=== PATIENT | male | born 1945 | race Caucasian/White ===

== ENCOUNTER → 2018-08-26 | Day surgery (SDC) | payer MEDICARE ==
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
[2018-08-25 13:18] VITALS: BMI 31.1
[~2018-08-26] MED LIST: Acetaminophen/Codeine 30-300mg Tablet ONE; CEFAZOLIN 2 GM/50 ML BAG ONE; Dexamethasone 20 MG/5 ML VIAL ONE; Fentanyl 100 MCG/2 ML VIAL ONE; Glycopyrrolate 0.2 MG/ML 5 ML SYRINGE ONE; HYDROmorphone 2 MG/ML VIAL SLOW IVP PRN; Lidocaine 1% PF 5 ML VIAL ONE; Meperidine HCl/PF 25 MG/ML VIAL SLOW IVP PRN; Morphine Sulfate 2 MG/ML SYRINGE SLOW IVP PRN; Ondansetron HCl/PF 4 MG/2 ML Vial IVP PRN; Ondansetron PF 4 MG/2 ML Vial ONE; PACU-Morphine 4MG/ML VIAL SLOW IVP PRN; PHENYLEPHRINE-NS 100 MCG/ML 10 ML SYRINGE ONE; PROPOFOL 200 MG/20 ML VIAL ONE; Promethazine HCl 25 MG/ML VIAL IM PRN; Promethazine HCl 25 MG/ML VIAL SLOW IVP PRN; Rocuronium Bromide 10 MG/ML (10ML VIAL) ONE; Sodium Chloride 0.9% 10 ML ONE; Thrombin 5000 UNITS/5 ML VIAL ONE
[2018-08-26 06:32] LABS: #Eosinphils 0.1 thou/uL (0.0-0.7); #Lymphocytes 1.7 thou/uL (1.20-3.40); #Monocytes 1.3 thou/uL (0.11-0.59); %Basophils 0.3 % (0.0-1.0); %Eosinophils 1.3 % (0.0-10.0); %Lymphocytes 15.3 % (21.0-51.0); %Monocytes 11.7 % (0.0-10.0); %Neutrophils 71.5 % (42.0-75.0); Hemoglobin 15.9 g/dL (14.0-18.0); Mean Corpuscular HGB CONC 34.1 g/dL (32.0-36.0); Mean Corpuscular Hemoglobin 30.3 pg (27.0-31.0); Mean Platelet Volume 8.1 fL (7.4-10.4); Platelet Count 190 thou/uL (130-400); RBC Distribution Width 11.4 % (11.5-14.5); Red Blood Cell (RBC) Count 5.26 mill/uL (4.70-6.10); White Blood Cell (WBC) Count 11.1 thou/uL (4.8-10.8)
[2018-08-26 06:38] LABS: INR-International Normal Ratio 0.9; PTT 32.9 SEC (22.9-36.1); Prothrombin Time 12.6 SEC (12.0-14.7)
[2018-08-26 06:53] LABS: Anion Gap 14 mmol/L (10-20); BUN (Urea Nitrogen) 25 mg/dL (8.4-25.7); Calc. Creatinine Clearance 78 mL/min (70-130); Calcium 9.7 mg/dL (7.8-10.44); Carbon Dioxide 25 mmol/L (23-31); Chloride 98 mmol/L (98-107); Estimated GFR-MDRD 67; Glucose 103 mg/dL (83-110); Potassium 4.4 mmol/L (3.5-5.1); Sodium 133 mmol/L (136-145)
--- NOTE | 2018-08-26 11:03 | OP ---
DATE OF PROCEDURE: 08/26/2018 FILLER SHREDDER HELPER: Charmaine Zaldivar PA-C. PREOPERATIVE INDICATION: Prevent further neurological deterioration. PREOPERATIVE DIAGNOSIS: Intervertebral disk disease at C3-C4 and C4-C5 with cord compression and myelopathy, rapid worsening. POSTOPERATIVE DIAGNOSIS: Intervertebral disk disease at C3-C4 and C4-C5 with cord compression and myelopathy, rapid worsening. PROCEDURE PERFORMED: Anterior cervical diskectomy, intervertebral arthrodesis, placement of intervertebral biomechanical device, anterior cervical plating C4-C5, local morselized autograft, morselized allograft, and operating microscope. PREOPERATIVE MEDICATION: Ancef 2 g IV. DRAIN NUMBER: Zero. DRAIN TYPE: None. DESCRIPTION OF PROCEDURE: The patient was brought to the operating room. General endotracheal anesthesia was induced. The patient was positioned supine on the operating table with his head supported by a gel-filled doughnut shaped headrest. A lateral fluoro radiograph was used to plan our incision. The right side of the neck was sterilely prepped and draped. We opened with a 10 blade knife and controlled bleeding with bipolar cautery. We dissected sharply to the platysma and then we cut this muscle in line with our incision. We continued our dissection medial to the sternocleidomastoid on the lateral to the trachea and esophagus. We arrived to the prevertebral space. We placed a marker at C3-C4 and took a lateral fluoro radiograph to confirm the level of spine which we were operating. We then elevated the longus colli muscles off the anterior surface of C3, C4, and C5. Self-retaining retractors were placed beneath the muscles. Distraction pins were placed at C3 and C5. We distracted across both of the intervening interspaces. We incised the interspaces with a 15 blade knife and removed disk contents using curettes and rongeurs. The operative microscope was brought into the field. Under microscopic magnification and using microsurgical techniques, we removed the remainder of the intervertebral disk. With the microcurette, we accessed the ventral epidural space. Using Kerrison rongeurs, we removed posterior osteophytes, posterior longitudinal ligament, and the remainder of the disk material from one neural foramen all the way to the other across the entire interspace at C3-C4 and C4-C5. At the completion of our decompression, the dura was no longer impinged upon. We saw nice pulsations with each heartbeat of the spinal cord itself. We then prepared for arthrodesis. Using curettes and a bone rasp, we prepared the endplates for grafting at C3-C4 and C4-C5. The bone rasp measured 8 mm height. We brought two separate 8 mm PEEK intervertebral grafts into the field. Osteophytes removed during our decompression were cleaned of soft tissue attachments, morcellized and added to demineralized bone matrix as our fusion substrate. The substrate was packed in the center of the 8 mm PEEK grafts and those grafts were advanced into the interspaces under radiographic guidance to the appropriate depth. We removed our distraction pins and took the operative microscope out of the field. A 34 mm plate was brought into the field. We drilled airline pilot flight instructor holes through the plate into the vertebral bodies at C3, C4, and C5. We affixed the plate using 14 mm screws. Fixed angle screws were used at C5 and variable angle screws at C3 and C4. We engaged the locking mechanism over each of the 6 screws. AP and lateral fluoro radiographs confirmed adequate position of instrumentation. We irrigated copiously with bacitracin irrigation. We closed the wound in anatomical layers and applied a sterile dressing. This was a clean case, no contamination. Job ID: [id number]
== END ==
LOC: SDC 05:46
PROVIDERS: ATTEND Neurological Surgery
PROC: 0RG20A0 Fusion of 2 or more Cervical Vertebral Joints with Interbody Fusion Device, Anterior Approach, Anterior Column, Open Approach (ICD-10-PCS; principal; 2018-08-26)
PROC: 0RT30ZZ Resection of Cervical Vertebral Disc, Open Approach (ICD-10-PCS; 2018-08-26)
DX: M50.01 Cervical disc disorder with myelopathy, high cervical region (principal); I10 Essential (primary) hypertension; M19.90 Unspecified osteoarthritis, unspecified site; I25.10 Atherosclerotic heart disease of native coronary artery without angina pectoris; E78.00 Pure hypercholesterolemia, unspecified; Z79.82 Long term (current) use of aspirin; Z79.899 Other long term (current) drug therapy; Z88.2 Allergy status to sulfonamides; Z95.1 Presence of aortocoronary bypass graft
CPT/HCPCS: 20930; 20936; 22551; 22552; 22845; 22853 ×2; 76000; 80048; 85025; 85610; 85730; C1713 ×2; C1776; L0174; 36415; J0131; J1100; J2001; J2405; J2704; J3010; J3490

== ENCOUNTER 2018-10-24 13:04 | Outpatient (CLI) | payer MEDICARE ==
--- NOTE | 2018-10-24 13:33 | RAD ---
CERVICAL SPINE 4 VIEWS: HISTORY: Neck surgery. Neck pain. FINDINGS: Anterior fixation plate and hardware at the C3-C4-5 levels. No perihardware lucency. Metallic markers associated with interbody fusion material are within the confines of the disc spaces at the postoper ative levels. Vertebral body heights and alignment are maintained. Mild osteophytosis. Rightward conv ex curvature on the frontal view. No acute fracture, dislocation, or aggressive osseous erosions. On the frontal view, an oval ill-defined nodule projects over the lateral aspect of the left upper lo be lung. It measures up to 2.0 cm oblique diameter. IMPRESSION: 1. Nodular density projecting over the left upper lobe. Please consider radiographic evaluation of t he chest, 2 views, for better evaluation. 2. Postoperative and degenerative changes cervical spine. Code T Transcribed Date/Time: 10/24/2018 1:38 PM
== END 2018-10-24 13:05 | disposition home or self-care (01) ==
LOC: TBSIIMAG 13:04
PROVIDERS: ATTEND Neurological Surgery
DX: M48.02 Spinal stenosis, cervical region (principal); M47.12 Other spondylosis with myelopathy, cervical region; M54.2 Cervicalgia; J98.4 Other disorders of lung; Z98.890 Other specified postprocedural states
CPT/HCPCS: 72040